=== PATIENT | female | born 1965 ===

== ENCOUNTER 2018-08-10 16:55 | Outpatient (CLI) | payer BC, MEDICARE | END 2018-08-10 16:56 | disposition home or self-care (01) | LOC: RAD 16:55 ==

== ENCOUNTER 2018-08-22 15:25 | Outpatient (CLI) | payer MEDICARE, BC | END 2018-08-22 15:26 | disposition home or self-care (01) | LOC: RAD 15:25 | DX: J18.8 Other pneumonia, unspecified organism (principal) ==

== ENCOUNTER 2018-08-29 00:51 | Inpatient (IN) | payer BC, MEDICARE ==
[2018-08-29 01:05] VITALS: BMI 39.4
--- NOTE | 2018-08-29 01:11 | ED PDOC ---
Arrival/HPI - General Chief Complaint: Abdominal Pain Time Seen by Provider: 08/29/18 00:58 Historian: Patient - History of Present Illness Narrative History of Present Illness (Text): 08/29/18 01:11 Nohemi Washburn is a 53 year old female, whose past medical history includes diabetes, diabetic neuropathy, ESRD on peritoneal dialysis, and hypertension, who presents to the ED complaining of back pain. Patient states she has been experiencing right mid-back/flank pain for the past few days, worse tonight and when she takes deep inspirations. Patient also reports some shortness of breath. Patient states she has been taking Motrin for pain, but denies any relief today. Patient notes she was recently sick with pneumonia, for which she had Chest X- ray, CT Chest, and was placed on antibiotics. Chest X-ray on 08/10/2018 showed extensive right lung infiltrates. Follow-up CT Chest on 08/22/2018 showed substantial decreased in right pleural effusion. Patient states she performs peritoneal dialysis every day while sleeping, but did not tonight. Patient denies any fever, chills, chest pain, shortness of breath, nausea, vomiting, diarrhea, urinary symptoms, neck pain, headache, dizziness, or any other complaints. Symptom Onset: Gradual Symptom Course: Unchanged Activities at Onset: Light Context: Home Past Medical History - Provider Review Nursing Documentation Reviewed: Yes - Cardiac Hx Hypertension: Yes Hx Peripheral Edema: Yes (not at present) - Pulmonary Hx Respiratory Disorders: No - Neurological Hx Multiple Sclerosis: Yes - HEENT Hx HEENT Disorder: No - Renal Hx Renal Disorder: Yes Hx Dialysis: Yes (Peritoneal Dialysis) Date of Last Dialysis Treatment: 11/06/17 Hx Renal Failure: Yes - Endocrine/Metabolic Hx Endocrine Disorders: Yes Hx Diabetes Mellitus Type 2: Yes - Hematological/Oncological Hx Blood Disorders: Yes - Integumentary Hx Dermatological Disorder: No - Musculoskeletal/Rheumatological Hx Arthritis: Yes (l ankle hx orif; toe prob) Hx Falls: No Hx Fractures: Yes (left ankle) - Gastrointestinal Hx Gastrointestinal Disorders: (constipation) - Genitourinary/Gynecological Hx Genitourinary Disorders: No - Psychiatric Hx Psychophysiologic Disorder: No Hx Substance Use: No - Surgical History Hx Section: Yes (x2) Hx Open Reduction Internal Fixation: Yes (left ankle) Other/Comment: av shunt insertion 08/15/17 - Anesthesia Hx Anesthesia: Yes Hx Anesthesia Reactions: No Hx Malignant Hyperthermia: No Family/Social History - Physician Review Nursing Documentation Reviewed: Yes Family/Social History: Unknown Family HX Smoking Status: Former Smoker Hx Alcohol Use: No Hx Substance Use: No Allergies/Home Meds Allergies/Adverse Reactions: Allergies No Known Allergies Allergy (Verified 10/30/17 09:25) Home Medications: Home Meds Medication Instructions Recorded Confirmed Aspirin [Aspirin Chewable] 81 mg PO DAILY 08/29/18 08/29/18 Atorvastatin [Lipitor] 40 mg PO QPM 08/29/18 08/29/18 B Complex W-C No.20/Folic Acid 1 mg PO DAILY 08/29/18 08/29/18 [Virt-Caps Softgel] Carvedilol [Coreg] 25 mg PO BID 08/29/18 08/29/18 Cu/Se/Vit A/Vit C/Vit E/Zinc 1 tab PO DAILY 08/29/18 08/29/18 [Ocuvite] Folic Acid/Vit B Complex and C 400 mcg PO DAILY 08/29/18 08/29/18 [Super B-Complex Folic-Vit C Tb] Furosemide [Lasix] 40 mg PO DAILY 08/29/18 08/29/18 Gabapentin [Neurontin] 200 mg PO HS 08/29/18 08/29/18 GlipiZIDE [Glipizide] 10 mg PO BID 08/29/18 08/29/18 Insulin Lispro Mix 75/25 [humalog 60 units SC BID 08/29/18 08/29/18 Mix 75/25 75 U/Ml-25 U/Ml 10 Ml] Melatonin 1 mg PO HS PRN 08/29/18 08/29/18 Metolazone 2.5 mg PO DAILY PRN 08/29/18 08/29/18 [place]-3 Fatty Acids [[place]-3] 1,000 mg PO BID 08/29/18 08/29/18 Sevelamer [Renagel] 800 mg PO TID 08/29/18 08/29/18 amLODIPine [Norvasc] 5 mg PO DAILY 08/29/18 08/29/18 Review of Systems - Physician Review All systems were reviewed & negative as marked: Yes - Review of Systems Constitutional: Normal. absent: Fevers Eyes: Normal ENT: Normal Respiratory: SOB, Cough Gastrointestinal: Normal. absent: Abdominal Pain, Diarrhea, Vomiting Musculoskeletal: Back Pain Physical Exam Vital Signs Reviewed: Yes Vital Signs Temp Pulse Resp BP Pulse Ox 08/29/18 01:05 98.1 F 91 H 16 107/88 97 Temperature: Afebrile Blood Pressure: Normal Pulse: Regular Respiratory Rate: Normal Appearance: Positive for: Well-Appearing, Non-Toxic, Comfortable Pain Distress: None Mental Status: Positive for: Alert and Oriented X 3 - Systems Exam Head: Present: Atraumatic, Normocephalic Pupils: Present: PERRL Extroacular Muscles: Present: EOMI Conjunctiva: Present: Normal Mouth: Present: Moist Mucous Membranes Neck: Present: Normal Range of Motion Respiratory/Chest: Present: Clear to Auscultation, Good Air Exchange. No: Respiratory Distress, Accessory Muscle Use Cardiovascular: Present: Regular Rate and Rhythm, Normal S1, S2. No: Murmurs Abdomen: No: Tenderness, Distention, Peritoneal Signs Back: Present: Normal Inspection Upper Extremity: Present: Normal Inspection. No: Cyanosis, Edema Lower Extremity: Present: Normal Inspection. No: Edema Neurological: Present: GCS=15, CN II-XII Intact, Speech Normal Skin: Present: Warm, Dry, Normal Color. No: Rashes Psychiatric: Present: Alert, Oriented x 3, Normal Insight, Normal Concentration Medical Decision Making ED Course and Treatment: 08/29/18 01:11 Impression: 53 year old female complaining of right mid-back/flank pain. Plan: -- EKG -- Chest X-ray -- Lung Perfusion and Vent Scan -- Labs, troponin, lipase -- Toradol -- Reassess and disposition Prior Visits: Notes and results from previous visits were reviewed. Progress Notes: Reviewed EKG, NSR at [address] bpm[address] Non-specific ST/T wave changes. 08/29/18 03:03 Chest X-ray reviewed, shows bilateral free air, no other acute processes. 08/29/18 04:41 Lung Perfusion and Vent: Analysis of the ventilation images reveal homogeneous distribution of tracer throughout the lungs. The perfusion images reveal homogeneous tracer localization throughout the lungs with no evidence of segmental or subsegmental perfusion defect. Impression: No significant mismatches to suggest a pulmonary embolus. Electronically signed on Aug 29, 2018 4:36:27 AM EDT by: Filomena Burrows M.D., Certified by ABR, MSK, Neuroradiology 08/29/18 05:[address] Maximiliano Chou, who is aware and agrees with plan. Accepts pt in to his service. Pt will go to [facility] observation for leukocytosis and flank pain. - Lab Interpretations I have reviewed the lab results: Yes - RAD Interpretation Section Plotter Operator: ED Physician, Radiologist - EKG Interpretation Interpreted by ED Physician: Yes Type: 12 lead EKG - Scribe Statement The provider has reviewed the documentation as recorded by the Srinivasa Jauregui Provider Scribe Attestation: All medical record entries made by the Scribe were at my direction and personally dictated by me. I have reviewed the chart and agree that the record accurately reflects my personal performance of the history, physical exam, medical decision making, and the department course for this patient. I have also personally directed, reviewed, and agree with the discharge instructions and disposition. Disposition/Present on Arrival - Present on Arrival Any Indicators Present on Arrival: No History of DVT/PE: No History of Uncontrolled Diabetes: No Urinary Catheter: No History of Decub. Ulcer: No History Surgical Site Infection Following: None - Disposition Have Diagnosis and Disposition been Completed?: Yes Diagnosis: Back pain, Peritoneal dialysis-associated peritonitis Disposition: HOSPITALIZED Disposition Time: 05:10 Condition: FAIR
[2018-08-29 02:10] LABS: BASO # 0.08 K/mm3 (0.0-2.0); BASO % 0.5 % (0.0-3.0); EOS # 1.1 (0.0-0.7); EOS % 7.2 % (1.5-5.0); HEMOGLOBIN 10.7 g/dL (12.0-16.0); LYMPH # 2.8 (1.2-3.4); LYMPH % 17.6 % (22.0-35.0); MEAN CELL VOLUME 97.1 fl (80.0-105.0); MEAN CORPUSCULAR HEMOGLOBIN 31.5 pg (25.0-35.0); MEAN CORPUSCULAR HGB CONC 32.4 g/dl (31.0-37.0); MEAN PLATELET VOLUME 8.9 fl (7.0-11.0); MONO # 0.7 (0.1-0.6); MONO % 4.1 % (1.0-6.0); RBC 3.4 10^6/uL (3.5-6.1); RED CELL DISTRIBUTION WIDTH 15.7 % (11.5-14.5); WHITE BLOOD COUNT 15.9 10^3/uL (4.5-11.0)
[2018-08-29 02:19] LABS: INR 0.93; PARTIAL THROMBOPLASTIN TIME 30.9 Seconds (26.9-38.3); PROTHROMBIN TIME 10.3 SECONDS (9.4-12.5)
[2018-08-29 02:23] LABS: ALB/GLOB RATIO 1.2 (1.1-1.8); ALBUMIN 4.1 g/dL (3.0-4.8); ALT/SGPT 28 U/L (7-56); AST/SGOT 53 U/L (14-36); BLOOD UREA NITROGEN 60 mg/dL (7-21); CALCIUM 8.9 mg/dL (8.4-10.5); GFR NON-AFRICAN AMERICAN 7; LIPASE 289 U/L (23-300)
[2018-08-29 02:35] LABS: TROPONIN I < 0.01 ng/mL
[2018-08-29] MEDS ORDERED: Morphine 2 mg/ml ISec IVP STA (03:36)
[2018-08-29] MEDS ORDERED: Vancomycin 1gm in NS 250ml 1 GM/250 ML BAG IVPB STA (04:02)
[2018-08-29] MEDS ORDERED: metroNIDAZOLE IV 500 mg/100 ml 500 MG/100 ML BAG IVPB STA (05:10)
--- NOTE | 2018-08-29 08:26 | RAD ---
HISTORY: cp COMPARISON: Chest x-ray performed 08/10/18, CT chest without contrast performed 08/22/18 TECHNIQUE: Chest, one view. FINDINGS: Examination limited by habitus, hypoinflation. Patient's chin obscures evaluation of the lung apices. LUNGS: Bibasilar atelectasis. Please note that chest x-ray has limited sensitivity for the detection of pulmonary masses. PLEURA: No significant pleural effusion identified. No definite pneumothorax . CARDIOVASCULAR: Heart size appears within normal limits. Atherosclerotic calcifications present. OSSEOUS STRUCTURES: No acute osseous abnormality identified. VISUALIZED UPPER ABDOMEN: Lucencies beneath bilateral hemidiaphragm consistent with free air; correlate clinically. OTHER FINDINGS: None. IMPRESSION: Bibasilar atelectasis. Curvilinear lucencies beneath bilateral hemidiaphragm consistent with free air; correlate clinically. This was also reported on chest CT without contrast performed 08/22/18. Findings discussed with Dr. Ramos on 08/29/18 at 8:17 a.m. Additional history provided indicates that the patient is on peritoneal dialysis.
[2018-08-29] MEDS ORDERED: Dextrose 50% SYRINGE Inj (50 ml) IV PRN (08:43)
[2018-08-29] MEDS ORDERED: Albuterol-Ipratrop 3 mg / 0.5 (3 ml) UD IH PRN (08:46)
[2018-08-29] MEDS: Morphine 2 mg/ml ISec IVP PRN ×3 (10:16→21:34)
[2018-08-29] MEDS: Insulin Detemir 100 units/ml Vial (Levemir) SC SCH ×2 (10:18→18:50)
--- NOTE | 2018-08-29 10:52 | CT ---
Date of service: 08/29/2018 CT abdomen and pelvis without IV contrast Indication: right flank pain Technique: Contiguous axial images of the abdomen and pelvis. Oral contrast was administered. No IV contrast given. Coronal and Sagittal reformats generated and reviewed. This CT exam was performed using 1 or more of the following dose reduction techniques: Automated exposure control, adjustment of the MAA and/or kV according to patient size, and/or use of iterative reconstruction technique. Radiation dose: Total exam DLP = 1485.79 mGy-cm. Comparison: Chest x-ray performed 08/29/18, CT chest without contrast performed 08/22/18 Findings: 17 mm cavitation versus bulla at the right lung base. There is no visible pleural effusion or pneumothorax. Heart size appears within normal limits. Abdominal free air. Right lower quadrant catheter. Hepatomegaly. The unenhanced liver, spleen, kidneys, pancreas, adrenal glands, and gallbladder appear otherwise unremarkable. Innumerable subcentimeter mesenteric lymph nodes The stomach is nondistended. The bowel loops appear within normal limits of caliber without evidence of intestinal obstruction. The appendix appears within normal limits of caliber. No secondary signs of acute appendicitis. Uterus is present. The urinary bladder appears unremarkable. Degenerative changes. Impression: 17 mm cavitation versus bulla at the right lung base. Abdominal free air. Right lower quadrant catheter. Hepatomegaly. Mesenteric inflammatory stranding ("tianna" mesentery) and numerous sub cm mesenteric lymph nodes. Appearance is nonspecific however differential diagnosis include but not limited to mesenteric panniculitis, neoplasm such as mesenteric lymphoma, infectious and or inflammatory etiologies.
[2018-08-29] MEDS: Albuterol-Ipratrop 3 mg / 0.5 (3 ml) UD IH SCH ×4 (11:17→23:45)
--- NOTE | 2018-08-29 11:26 | HP ---
HISTORY OF PRESENT ILLNESS: The patient is a 53-year-old woman with multiple medical comorbidities including ESRD on peritoneal dialysis, who was recently treated for a right lower lobe pneumonia with a 10 day course of Levaquin, who presented for evaluation of a 2 day history of right-sided mid-back/flank pain. Approximately 2 weeks ago she was seen in her PMD's office for complaint of low-grade fevers, chills, dyspnea and cough productive of green sputum. She was diagnosed with a pneumonia and sent for an x-ray which confirmed the RLL pneumonia. The patient demonstrated moderate improvement in her respiratory symptoms but 1 week later returned for followup and endorsed persistent pleuritic chest pain, albeit improved. She was sent for a CT of the chest without contrast which demonstrated a substantially decreased right pleural effusion with reexpansion of the right lower lobe and free air under the diaphragm likely related to her peritoneal dialysis. The patient continued to demonstrate gradual improvement in her respiratory status until approximately 4 days prior to presentation to the ED when she developed the aforementioned right-sided mid-back/flank pain. She also reported chills associated with her symptoms but denied fevers, rigors, cough, hemoptysis or dyspnea. She also denied dysuria, hematuria, nausea, vomiting or diarrhea. In the ED she was afebrile and hemodynamically stable, albeit in mild distress secondary to right flank pain. A chest x-ray demonstrated no acute pathology and routine laboratory studies demonstrated leukocytosis with a WBC of 16,000 with 71% neutrophils. She was subsequently admitted for continued workup and management. PAST MEDICAL HISTORY: As per HPI, also hypertension, hyperlipidemia, insulin-dependent diabetes mellitus with diabetic neuropathy and multiple sclerosis. PAST SURGICAL HISTORY: , orthopedic repair of left ankle fracture and placement of left upper extremity AV fistula. ALLERGIES: NKDA. MEDICATIONS: Aspirin 81 mg p.o. daily, Lipitor 40 mg p.o. daily, Carvedilol 25 mg p.o. b.i.d., Amlodipine 5 mg p.o. daily, Lasix 40 mg p.o. daily, Gabapentin 200 mg p.o. at bedtime, Sevelamer 800 mg p.o. t.i.d., [place]-3 fatty acids 1000 mg p.o. b.i.d., Metolazone 2.5 mg p.o. daily, Glipizide 10 mg p.o. b.i.d. and Humalog 75/25 60 units SC t.i.d. with meals. FAMILY HISTORY: Significant for hypertension, diabetes, Alzheimer's disease and an unknown malignancy in her mother. SOCIAL HISTORY: The patient denies any toxic habits. REVIEW OF SYSTEMS: A 12-point review of systems is negative except as per HPI. PHYSICAL EXAMINATION: VITAL SIGNS: Temperature 98.2, pulse 95, blood pressure 130/55, respiratory rate 20, oxygen saturation 95% on room air. GENERAL: Morbidly obese woman lying in bed in no apparent distress. HEENT: PERRL, EOMI. No scleral icterus. No conjunctival pallor. NECK: No JVD. No bruits. LUNGS: Clear to auscultation. CARDIOVASCULAR: Regular rate and rhythm. Normal S1, S2. No murmurs. ABDOMEN: Normoactive bowel sounds, soft, nontender, nondistended. Tenderness to palpation to left flank. EXTREMITIES: Trace pedal edema bilaterally. NEUROLOGIC: Awake, alert and oriented x 3. No focal motor deficits. LABORATORY DATA: WBC 15.9 with 71% neutrophils, hemoglobin 10.7, hematocrit 33, platelets 427. Sodium 143, potassium 4.3, chloride 98, bicarb 33, BUN 60, creatinine 6, glucose 138. IMAGING STUDIES: 1. Chest x-ray demonstrated bibasilar atelectasis and curvilinear lucencies beneath the bilateral hemidiaphragms consistent with free air. ASSESSMENT: The patient is a 53-year-old woman with multiple medical comorbidities who was recently treated with a 10 day course of antibiotics for community-acquired pneumonia who presented with a 3 day history of right sided mid-back and flank pain and was admitted for workup and management of SIRS syndrome. PLAN: 1. SIRS syndrome, rule out sepsis. The patient received a dose of Vancomycin and Flagyl in the ED. Evaluation with Dr. Oates of Infectious Disease is pending. We will order a CT of the abdomen and pelvis to further evaluate possible etiology of the patient's presenting symptoms. Continue to monitor for fever and leukocytosis and await final culture reports. We will check a procalcitonin level. 2. ESRD on peritoneal dialysis. Will consult Dr. Guerra of Nephrology to facilitate continue dialysis while the patient remains hospitalized. Resume sevelamer 800 mg p.o. t.i.d. 3. Insulin-dependent diabetes mellitus with diabetic neuropathy. We will start Levemir 30 units SC b.i.d. and medium dose insulin sliding scale for coverage. Will continue monitor fingersticks q.a.c. and at bedtime and adjust medications as needed. Continue Gabapentin 200 mg p.o. at bedtime for neuropathy. 4. Hypertension. Blood pressure controlled. Continue Carvedilol 25 mg p.o. b.i.d. and Amlodipine 5 mg p.o. daily. 5. Hyperlipidemia. Continue Lipitor 40 mg p.o. daily. 6. Multiple sclerosis. Continue Gabapentin 20 mg p.o. at bedtime. 7. Anemia of chronic disease. Labs demonstrate Hb at baseline. We will continue monitor CBC and transfuse as needed. 8. Right lower lobe pneumonia, resolving. Chest x-ray reviewed and demonstrates near resolution of prior pneumonia. We will order incentive spirometry and bronchodilators. 9. Prophylaxis. GI prophylaxis not indicated as the patient is eating. DVT prophylaxis not indicated as the patient is ambulatory. CODE STATUS: Full code. Eh Chou MD MTDDayan
[2018-08-29] MEDS: Insulin Reg-MEDIUM-Coverage SC SCH ×3 (12:22→21:32)
--- NOTE | 2018-08-29 13:17 | CARD ---
APPROVED REPORT Date of service: 08/29/2018 EKG Measurement Heart [id number] <Conclusion> Normal sinus rhythm Possible Left atrial enlargement Poor R Progression V1-V3.
[2018-08-29] MEDS ORDERED: Pneumococcal 23-Valent Vaccine IM ONE (13:54)
--- NOTE | 2018-08-29 16:11 | CP.PCM.CON ---
History of Present Illness - History of Present Illness History of Present Illness: Nephrology Consultation Note: Assessment: Stable SIRS r/o PD peritonitis Diabetic chronic Kidney Disease (E11.22) Hypertensive Chronic Kidney Disease (I12.0) End stage renal disease (N18.6) dependence on PD Anemia (D64.9), Hyperphosphatemia (E83.39), Secondary Hyperparathyroidism (E21.1), morbid obesity Plan: check PD fluid cell count and culture tonight. Pt will resume PD as per home regimen. will bring supply from home. Continue with Nephrovite 1 tab/day. PRBC as needed for anemia. not on KRISTIE as last Hb >10 Continue with phos binders, last phos level: check Continue with calcitriol. BP control with meds as ordered. Patient not on RAAS jannette, will consider to add if BP high. will d/c norvasc and change lasix to IV considering edema Glycemic control, Dialysis consistent diet Further work up/management as per primary team Dose meds/antibiotics (if needed) for ESRD status. Avoid fleets enema/magnesium based laxatives. Thanks for allowing me to participate in care of your patient. Will follow patient with you. Please call if any Qs. had d/w team and family bedside Dr Antonio Guerra Office: [phone] Chief Complaint;flank pain HPI: Pt is a 53 F with hx of ESRD on APD with Dr Castillo, chronic anemia, hyperphosphatemia, secondary hyperparathyroidism, Diabetes Mellitus, hypertension morbid obesity presented with complaints of flank pain and admitted for further work up. Renal consult requested for ESRD management. pt says she was on HD for few months then switched to HD jan 2018. do PD at night with cycler. average UF as per pt varies but may be 1000 mLc/o leg swelling as well ROS: Cardiovascular: No chest pain. Pulmonary: c/o shortness of breath on exertion. has cough Gastrointestinal: c/o abdominal pain No nausea. No vomiting. Genitourinary: No pain while urinating. Denies blood in urine. All other negative except as mentioned in HPI Physical Examination: General Appearance: Comfortable, in no acute respiratory distress, co-operative .morbidly obese Vitals reviewed and noted as below Head; Atraumatic, normocephalic ENT: no ulcers no thrush. Tongue is midline. Oropharynx: no rash or ulcers. EYES: Pupils are equal, round and reactive to light accommodation. Eye muscles and extraocular movement intact. Sclera is anicteric. Neck; supple no lymphadenopathy, no thyromegaly or bruit Lungs: Normal respiratory rate/effort. Breath sounds bilateral equal and clear Heart: Normal rate. s1s2 normal. No rub or gallop. Extremities: 2+ edema. No varicose veins Neurological: Patient is alert, awake and oriented to person, place and time. No focal deficit. Strength bilateral appropriate and equal Skin: Warm and dry. Normal turgor. No rash. Palpitation: Normal elasticity for age Abdomen: Abdomen is soft. Bowel sounds +. There is mild abdominal tenderness, no guarding/rigidity or organomegaly. has PD catheter Psych: normal insight and normal affect/mood MSK: no joint tenderness or swelling. Digits and nails normal, no deformity : kidney or bladder not palpable Access: PD catheter Labs/imaging reviewed. Past medical history, past surgical history, family history, social history, allergy reviewed and noted as below Family Hx: no hx of CKD. Non contributory Past Patient History - Past Medical History & Family History Past Medical History?: Yes - Past Social History Smoking Status: Former Smoker - CARDIAC Hx Cardiac Disorders: Yes Hx Hypercholesterolemia: Yes Hx Hypertension: Yes Hx Peripheral Edema: Yes (ble +1 pitting) Other/Comment: developed a thrombus to jeannine av shunt unable to use it for dialysis, pt does peritoneal dialysis at home every day for 9 hours at night while she sleeps - PULMONARY Hx Respiratory Disorders: Yes Hx Pneumonia: Yes (recent rll) - NEUROLOGICAL Hx Neurological Disorder: Yes (multiple sclerosis dx 2003) Other/Comment: diabetic neuropathy both legs and feet, "I can't feel anything, muscle weakness to both legs from ms." - HEENT Hx HEENT Problems: No - RENAL Hx Chronic Kidney Disease: Yes Hx Dialysis: Yes (Peritoneal Dialysis) Hx Renal Failure: Yes Other/Comment: pt had a left uppr arm av shunt implanted 11/2017, developed a thrombus after 1st dialysis had graft but unable to use it. Pt started peritoneal dialysis 01/2018 at home daily for 9 hours while she sleeps pt and do it themselves. Supplies come from [facility] and is delivered every 2 weeks. peritoneal dialysis catheter to left abd. - ENDOCRINE/METABOLIC Hx Endocrine Disorders: Yes Hx Diabetes Mellitus Type 2: Yes - HEMATOLOGICAL/ONCOLOGICAL Hx Blood Disorders: Yes Hx Anemia: Yes - INTEGUMENTARY Hx Dermatological Problems: Yes Other/Comment: left great toe callous skin hard and dry, dry skin to both feet/toes, dry toenails, dark healed scarring from left av shunt - MUSCULOSKELETAL/RHEUMATOLOGICAL Hx Falls: Yes (fell x2 2018) - GASTROINTESTINAL Hx Gastrointestinal Disorders: Yes (constipation, takes colace when needed) Other/Comment: obese - GENITOURINARY/GYNECOLOGICAL Hx Genitourinary Disorders: Yes (pt does void) Other/Comment: irregular menses - PSYCHIATRIC Hx Substance Use: No - SURGICAL HISTORY Hx Surgeries: Yes (c section x 2) Hx Orthopedic Surgery: Yes (orif left ankle) Other/Comment: av shunt insertion 08/15/17 jeannine, had graft due to hd cath thrombus, av shunt not replaced unable to use it, pt has been on peritoneal dialysis since has pd cath to left abd 01/2018 - ANESTHESIA Hx Anesthesia: Yes Hx Anesthesia Reactions: No Hx Malignant Hyperthermia: No Meds Allergies/Adverse Reactions: Allergies Allergy/AdvReac Type Severity Reaction Status Date / Time No Known Allergies Allergy Verified 10/30/17 09:25 - Medications Medications: Current Medications Acetaminophen (Tylenol 325mg Tab) 650 mg PO Q4H PRN PRN Reason: Fever >100.5 F Albuterol/Ipratropium (Duoneb 3 Mg/0.5 Mg (3 Ml) Ud) 3 ml IH Q2H PRN PRN Reason: Shortness of Breath Albuterol/Ipratropium (Duoneb 3 Mg/0.5 Mg (3 Ml) Ud) 3 ml IH [id number] [facility] Last Admin: 08/29/18 15:08 Dose: 3 ml Amlodipine Besylate (Norvasc) 5 mg PO DAILY [facility] Last Admin: 08/29/18 10:19 Dose: 5 mg Aspirin (Aspirin Chewable) 81 mg PO DAILY [facility] Last Admin: 08/29/18 10:19 Dose: 81 mg Atorvastatin Calcium (Lipitor) 40 mg PO DIN [facility] Carvedilol (Coreg) 25 mg PO BID [facility] Last Admin: 08/29/18 10:19 Dose: 25 mg Dextrose (Dextrose 50% Inj) 0 ml IV STAT PRN; Protocol PRN Reason: Hypoglycemia Protocol Furosemide (Lasix) 40 mg PO DAILY [facility] Last Admin: 08/29/18 12:21 Dose: 40 mg Gabapentin (Neurontin) 200 mg PO HS [facility]; Protocol Dextrose (Dextrose 5% In Water 1000 Ml) 1,000 mls @ 0 mls/hr IV .Q0M PRN; Protocol PRN Reason: Hypoglycemia Protocol Meropenem 250 mg/ Sodium (Chloride) 100 mls @ 100 mls/hr IVPB Q12H [facility]; Protocol Stop: 09/05/18 14:01 Last Admin: 08/29/18 15:12 Dose: 100 mls/hr Insulin Detemir (Levemir) 30 unit SC BID [facility] Last Admin: 08/29/18 10:18 Dose: 30 units Insulin Human Regular (Humulin R Med) 0 units SC ACHS [facility]; Protocol Last Admin: 08/29/18 12:22 Dose: 5 units Morphine Sulfate (Morphine) 2 mg IVP Q4H PRN PRN Reason: Pain, moderate (4-7) Last Admin: 08/29/18 15:10 Dose: 2 mg Sevelamer HCl (Renagel) 800 mg PO TID [facility] Last Admin: 08/29/18 15:10 Dose: 800 mg Results - Vital Signs Recent Vital Signs: Last Vital Signs Temp 97.7 F 08/29/18 13:56 Pulse 82 08/29/18 13:56 Resp 18 08/29/18 13:56 BP 114/68 08/29/18 13:56 Pulse Ox 94 L 08/29/18 13:56 - Labs Result Diagrams: 08/29/18 01:45 08/29/18 01:45 Labs: Laboratory Results - last 24 hr 08/29/18 08/29/18 08/29/18 01:45 01:45 01:45 WBC 15.9 H RBC 3.40 L Hgb 10.7 L Hct 33.0 L MCV 97.1 MCH 31.5 MCHC 32.4 RDW 15.7 H Plt Count 427 MPV 8.9 Neut % (Auto) 70.6 H Lymph % (Auto) 17.[address] [facility] % (Auto) 4.1 Eos % (Auto) 7.2 H Baso % (Auto) 0.5 Lymph # (Auto) 2.8 [facility] # (Auto) 0.7 H Eos # (Auto) 1.1 H Baso # (Auto) 0.08 Absolute Neuts (auto) 11.24 H PT 10.3 INR 0.93 APTT 30.9 Sodium 143 Potassium 4.3 Chloride 98 Carbon Dioxide 33 Anion Gap 17 BUN 60 H Creatinine 6.0 H Est GFR ( Amer) 9 Est GFR (Non-Af Amer) 7 POC Glucose (mg/dL) Random Glucose 138 H Calcium 8.9 Total Bilirubin 0.3 AST 53 H D ALT 28 Alkaline Phosphatase 121 Troponin I < 0.01 Total Protein 7.6 Albumin 4.1 Globulin 3.5 Albumin/Globulin Ratio 1.2 Lipase 289 08/29/18 11:08 WBC RBC Hgb Hct MCV MCH MCHC RDW Plt Count MPV Neut % (Auto) Lymph % (Auto) [facility] % (Auto) Eos % (Auto) Baso % (Auto) Lymph # (Auto) [facility] # (Auto) Eos # (Auto) Baso # (Auto) Absolute Neuts (auto) PT INR APTT Sodium Potassium Chloride Carbon Dioxide Anion Gap BUN Creatinine Est GFR ( Amer) Est GFR (Non-Af Amer) POC Glucose (mg/dL) 253 H Random Glucose Calcium Total Bilirubin AST ALT Alkaline Phosphatase Troponin I Total Protein Albumin Globulin Albumin/Globulin Ratio Lipase
[2018-08-29] MEDS: POLYETHYLENE GLYCOL 3350 17 GM/Dose PACKET PO SCH (18:48)
[2018-08-30] MEDS: Morphine 2 mg/ml ISec IVP PRN (01:50)
[2018-08-30] MEDS ORDERED: Insulin Reg-MEDIUM-Coverage SC STA (02:31)
[2018-08-30] MEDS: Albuterol-Ipratrop 3 mg / 0.5 (3 ml) UD IH SCH ×7 (02:39→23:30)
[2018-08-30] MEDS: Insulin Reg-MEDIUM-Coverage SC SCH ×4 (07:00→21:24)
[2018-08-30 07:16] LABS: BASO # 0.08 K/mm3 (0.0-2.0); BASO % 0.7 % (0.0-3.0); EOS % 8.3 % (1.5-5.0); HEMOGLOBIN 10.3 g/dL (12.0-16.0); LYMPH # 2.1 (1.2-3.4); LYMPH % 17.8 % (22.0-35.0); MEAN CELL VOLUME 97.9 fl (80.0-105.0); MEAN CORPUSCULAR HEMOGLOBIN 30.8 pg (25.0-35.0); MEAN CORPUSCULAR HGB CONC 31.5 g/dl (31.0-37.0); MEAN PLATELET VOLUME 8.8 fl (7.0-11.0); MONO # 0.5 (0.1-0.6); MONO % 4.1 % (1.0-6.0); RBC 3.34 10^6/uL (3.5-6.1); RED CELL DISTRIBUTION WIDTH 15.6 % (11.5-14.5); WHITE BLOOD COUNT 11.6 10^3/uL (4.5-11.0)
[2018-08-30 08:00] LABS: ALB/GLOB RATIO 1.2 (1.1-1.8); ALBUMIN 4.4 g/dL (3.0-4.8); CALCIUM 8.7 mg/dL (8.4-10.5)
--- NOTE | 2018-08-30 08:57 | CON ---
DATE OF CONSULTATION: 08/30/2018 PULMONARY CONSULTATION REASON FOR CONSULTATION: Bullae, right base. REFERRING PHYSICIAN: Eh Chou MD HISTORY OF PRESENT ILLNESS: The patient is a 53-year-old female, with past medical history significant for recent right upper lobe/right lower lobe pneumonia, diabetes mellitus, end-stage renal disease, on peritoneal dialysis, hypertension, neuropathy, who presents to [facility] with main complaint of increasing right back pain for the past 2 days. The patient denies shortness of breath at rest. She does state to some dyspnea on exertion - much improved from 2 weeks ago. She also states to some minimal cough with occasional sputum production - also much improved from 2 weeks ago. There is no history of chest pain, coughing up of blood, or chest pain - brought on with deep respirations. There is no history of temperatures or chills or infectious exposure. The patient does state to taking her temperature every day. No history of night sweats, weight loss, or appetite change prior to the above events. No history of calf pains. No history of syncope or diaphoresis. No history of recent travel or trauma. REVIEW OF SYSTEMS: No history of nausea, vomiting or diarrhea. No acute urinary symptoms. No new neurologic complaints. Rest of the review of systems negative. ALLERGIES: NO KNOWN ALLERGIES. SOCIAL HISTORY: Positive for former tobacco usage. No alcohol. FAMILY HISTORY: No inheritable diseases. MEDICATIONS: Home medications include Norvasc, Renagel, insulin, metolazone, melatonin, Neurontin, Lasix, vitamins, Lipitor, aspirin. PHYSICAL EXAMINATION: GENERAL: The patient appears comfortable this morning. She is not short of breath at rest. VITAL SIGNS: Temperature is 98.4, pulse 90, respirations 18/20, blood pressure 144/81. Oxygen saturation on room air 92-97%. HEENT: Normocephalic, atraumatic. NECK: No JVD. CARDIOVASCULAR: Positive S1, S2. No S3, gallop. LUNGS: Decreased breath sounds at the bases. Very minimal rhonchi. No wheezing. EXTREMITIES: Mild edema, no cyanosis, no clubbing. Calves are nontender to palpation. GASTROINTESTINAL: Abdomen is soft, nontender and nondistended. Bowel sounds are positive. SKIN: No acute rash. NEUROLOGIC: Exam limited at the present time. PERTINENT LABORATORY DATA: Chest x-ray was done yesterday and reviewed. I also compared to the chest x-ray done yesterday to the chest x-ray done on 08/10/2018. The chest x-ray done yesterday is significantly improved from the chest x-ray of 08/10/2018 - with complete clearing of the right upper lobe and right lower lobe infiltrates. Abdominal and pelvic CAT scan was also done. There is a small bullae versus cavitation noted at the right lung base. There are NO pulmonary infiltrates. There is no significant lymphadenopathy. CBC: White count 15.9K, hemoglobin 10.7, hematocrit 33.0, platelets of 427,000. Complete metabolic profile: BUN 60, creatinine 6, glucose 138, AST 53. Rest of the metabolic profile is within normal limits. Procalcitonin is negative - 0.15. IMPRESSION: 1. Cavitation verses bullae - right lung base. 2. Status post recent right upper lobe, right lower lobe pneumonia. 3. End-stage renal disease. 4. Leukocytosis. 5. Anemia. PLAN: The patient presents to [facility] with a 2-day history of increasing right back pain. In addition to the above, the patient does have a recent history of extensive right-sided pneumonia. In the emergency room, the patient was noted to have a leukocytosis. She was thus admitted for additional evaluation. I did question the patient at length. She is not short of breath at rest. She does complain of some mild dyspnea on exertion, and occasional cough (with occasional sputum production) - much improved from 2 weeks ago. In addition, there is NO recent history of fevers. The patient does take her temperature every day. I did review the chest x-ray as above. The chest x-ray is very significantly improved - from the previous chest x-ray - with complete resolution of the right-sided infiltrates. I have also reviewed the CAT scan of the abdomen and pelvis. Findings are noted above. Interesting to note, there are no pulmonary infiltrates noted. There is also no significant lymphadenopathy. The patient has been placed on antibiotic therapy - as per Infectious Disease. Input by Dr. Oates is noted. I will discuss the case with Dr. Chou this morning. Given the leukocytosis, it may be prudent to involve Interventional Radiology (Dr. Anson Juarez), and get his opinion. On physical exam, there is no significant bronchospasm. In addition, there is no significant alveolar arterial gradient. I will continue the current nebulizer treatments for now. Again, the patient's clinical status is significantly improved - compared to 2 weeks ago. Again, I will discuss the above with Dr. Chou this morning. Thank you very much for this pulmonary consultation. Isac Erazo MD MTDD
[2018-08-30] MEDS: Insulin Detemir 100 units/ml Vial (Levemir) SC SCH ×2 (10:11→19:39)
--- NOTE | 2018-08-30 10:39 | PN ---
SUBJECTIVE: The patient was seen and examined at bedside on the general medical saleem. No acute events overnight. She remains afebrile and hemodynamically stable. This morning she reports some improvement in her presenting symptoms and otherwise denies fevers, chills, rigors, cough, hemoptysis, dyspnea or GI symptoms. OBJECTIVE: VITAL SIGNS: Temperature 97.9, pulse 80, blood pressure 135/73, respiratory rate 20 and oxygen saturation 92% on room air. GENERAL: Morbidly obese woman, sitting up in her chair, in no apparent distress. HEENT: PERRL, EOMI. No scleral icterus. Mild conjunctival pallor is noted. NECK: No JVD. No bruits. LUNGS: Clear to auscultation. CARDIOVASCULAR: Regular rate and rhythm. Normal S1 and S2. No murmurs. ABDOMEN: Normoactive bowel sounds, soft, nontender and nondistended. EXTREMITIES: Trace pedal edema bilaterally. NEUROLOGIC: Awake, alert and oriented x 3. No focal motor deficits. LABORATORY DATA: WBC 11.6 with 69% neutrophils, hemoglobin 10, hematocrit 33 and platelets 401. Sodium 138, potassium 4.6, chloride 97, bicarb 28, BUN 58, creatinine 6 and glucose 406. Blood cultures with no growth to date. IMAGING STUDIES: 1. CT of the abdomen and pelvis without contrast demonstrated a 17 mm cavitation vs bulla to the right lung base, hepatomegaly and mesenteric inflammatory stranding with numerous mesenteric lymph nodes. ASSESSMENT: The patient is a 53-year-old woman with multiple medical comorbidities who was recently treated with a 10 day course of antibiotics for community-acquired pneumonia who presented with a 3 day history of right-sided mid-back and flank pain and was admitted for management of SIRS syndrome. PLAN: 1. SIRS syndrome, rule out sepsis. Input from Dr. Oates noted and the patient remains on Meropenem 250 mg IV q. 12 hours. Blood cultures remain negative and she continues to demonstrate clinical improvement. Peritoneal fluid analysis pending to rule out peritonitis. 2. Community-acquired pneumonia to the right lower lobe, resolved. Imaging studies reviewed and the case has been discussed with Dr. Erazo. We will speak with Dr. Anson Juarez regarding feasibility/clinical utility of pursuing biopsy/aspiration of the bulla noted on CT. Continue incentive spirometry and bronchodilators. 3. ESRD on peritoneal dialysis. Input from Dr. Guerra noted. Continue with care as per Dr. Guerra. 4. Insulin-dependent diabetes mellitus with diabetic neuropathy. Fingersticks remain elevated. We will increase Levemir to 40 units subcutaneously b.i.d. and start Humalog 75/25 at 20 units subcutaneously t.i.d. with meals. Continue to monitor fingersticks q.a.c. and at bedtime and adjust medications as needed. Continue Gabapentin 200 mg p.o. at bedtime for neuropathy. 5. Hypertension. Continue Carvedilol 25 mg p.o. b.i.d. 6. Hyperlipidemia. Continue Lipitor 40 mg p.o. daily. 7. Multiple sclerosis. Continue Gabapentin 200 mg p.o. at bedtime. 8. Anemia of chronic disease. Hb stable. Continue to monitor CBC and transfuse as needed. 9. Prophylaxis. GI prophylaxis not indicated as the patient is eating. DVT prophylaxis not indicated as the patient is ambulatory. CODE STATUS: Full code. Eh Chou MD MTDD
--- NOTE | 2018-08-30 11:21 | CP.PCM.PN ---
Subjective - Date & Time of Evaluation Date of Evaluation: 08/30/18 Time of Evaluation: 06:00 Objective - Vital Signs/Intake and Output Vital Signs (last 24 hours): Temp Pulse Resp BP Pulse Ox 97.9 F 88 20 142/69 92 L 08/30/18 06:00 08/30/18 10:08 08/30/18 06:00 08/30/18 10:09 08/30/18 06:00 Intake and Output: 08/30/18 08/30/18 06:59 18:59 Intake Total 780 Balance 780 - Medications Medications: Current Medications Acetaminophen (Tylenol 325mg Tab) 650 mg PO Q4H PRN PRN Reason: Fever >100.5 F Albuterol/Ipratropium (Duoneb 3 Mg/0.5 Mg (3 Ml) Ud) 3 ml IH Q2H PRN PRN Reason: Shortness of Breath Albuterol/Ipratropium (Duoneb 3 Mg/0.5 Mg (3 Ml) Ud) 3 ml IH [id number] [facility] Last Admin: 08/30/18 07:59 Dose: 3 ml Aspirin (Aspirin Chewable) 81 mg PO DAILY [facility] Last Admin: 08/30/18 10:05 Dose: 81 mg Atorvastatin Calcium (Lipitor) 40 mg PO DIN [facility] Last Admin: 08/29/18 18:48 Dose: 40 mg Carvedilol (Coreg) 25 mg PO BID [facility] Last Admin: 08/30/18 10:08 Dose: 25 mg Dextrose (Dextrose 50% Inj) 0 ml IV STAT PRN; Protocol PRN Reason: Hypoglycemia Protocol Furosemide (Lasix) 40 mg IVP DAILY [facility] Last Admin: 08/30/18 10:09 Dose: 40 mg Gabapentin (Neurontin) 200 mg PO HS [facility]; Protocol Last Admin: 08/29/18 22:20 Dose: 200 mg Dextrose (Dextrose 5% In Water 1000 Ml) 1,000 mls @ 0 mls/hr IV .Q0M PRN; Protocol PRN Reason: Hypoglycemia Protocol Meropenem 250 mg/ Sodium (Chloride) 100 mls @ 100 mls/hr IVPB Q12H [facility]; Protocol Stop: 09/05/18 14:01 Last Admin: 08/30/18 01:51 Dose: 100 mls/hr Insulin Detemir (Levemir) 40 unit SC BID [facility] Last Admin: 08/30/18 10:11 Dose: 40 u Insulin Human Regular (Humulin R Med) 0 units SC [facility]; Protocol Last Admin: 08/30/18 07:00 Dose: 10 units Insulin Lispro Protam/Lispro Human (Humalog Mix 75/25) 20 units SC AC [facility] Lactulose (Enulose) 20 gm PO HS PRN PRN Reason: Constipation Polyethylene Glycol (Miralax) 17 gm PO DAILY [facility] Stop: 09/02/18 10:01 Last Admin: 08/29/18 18:48 Dose: 17 gm Sevelamer HCl (Renagel) 800 mg PO TID [facility] Last Admin: 08/30/18 10:05 Dose: 800 mg - Labs Labs: 08/30/18 06:40 08/30/18 06:40 PT 10.3 SECONDS (9.4-12.5) 08/29/18 01:45 INR 0.93 08/29/18 01:45 APTT 30.9 Seconds (26.9-38.3) 08/29/18 01:45
[2018-08-30] MEDS: Insulin Lispro (humaLOG) MIX 75/25(10 ml) SC SCH ×2 (12:14→17:26)
--- NOTE | 2018-08-30 14:07 | CP.PCM.PN ---
Subjective - Date & Time of Evaluation Date of Evaluation: 08/30/18 Time of Evaluation: 14:04 - Subjective Subjective: Nephrology Consultation Note: Assessment: Stable SIRS r/o PD peritonitis Diabetic chronic Kidney Disease (E11.22) Hypertensive Chronic Kidney Disease (I12.0) End stage renal disease (N18.6) dependence on PD Anemia (D64.9), Hyperphosphatemia (E83.39), Secondary Hyperparathyroidism (E21.1), morbid obesity Plan: sent PD fluid cell count and culture last night. results awaited Pt will continue PD as per home regimen. had brought supply from home. advised to avoid 4.25% solution. she will use 2.5% dex Continue with Nephrovite 1 tab/day. PRBC as needed for anemia. not on KRISTIE as last Hb >10 Continue with phos binders, last phos level: check BP control with meds as ordered. Patient not on RAAS jannette, will consider to a dd if BP high. will d/c norvasc and change lasix to IV considering edema, continue same as ordered Glycemic control, Dialysis consistent diet Further work up/management as per primary team Dose meds/antibiotics (if needed) for ESRD status. Avoid fleets enema/magnesium based laxatives. Thanks for allowing me to participate in care of your patient. Will follow patient with you. Please call if any Qs. had d/w team and family bedside Dr Antonio Guerra Office: [phone] Chief Complaint;flank pain HPI: Pt is a 53 F with hx of ESRD on APD with Dr Castillo, chronic anemia, hyperphosphatemia, secondary hyperparathyroidism, Diabetes Mellitus, hypertension morbid obesity presented with complaints of flank pain and admitted for further work up. Renal consult requested for ESRD management. pt says she was on HD for few months then switched to HD jan 2018. do PD at night with cycler. average UF as per pt varies but may be 1000 mLc/o leg swelling as well ROS: feels better. PD uneventful overnight. net UF 1600 mL. she used 4.25% dextrose solution also but high sugars today Cardiovascular: No chest pain. Pulmonary: no shortness of breath on exertion. has cough Gastrointestinal: no abdominal pain No nausea. No vomiting. Genitourinary: No pain while urinating. Denies blood in urine. All other negative except as mentioned in HPI Physical Examination: General Appearance: Comfortable, in no acute respiratory distress, co-operative .morbidly obese Vitals reviewed and noted as below Head; Atraumatic, normocephalic ENT: no ulcers no thrush. Tongue is midline. Oropharynx: no rash or ulcers. EYES: Pupils are equal, round and reactive to light accommodation. Eye muscles and extraocular movement intact. Sclera is anicteric. Neck; supple no lymphadenopathy, no thyromegaly or bruit Lungs: Normal respiratory rate/effort. Breath sounds bilateral equal and clear Heart: Normal rate. s1s2 normal. No rub or gallop. Extremities: 2+ edema. No varicose veins Neurological: Patient is alert, awake and oriented to person, place and time. No focal deficit. Strength bilateral appropriate and equal Skin: Warm and dry. Normal turgor. No rash. Palpitation: Normal elasticity for age Abdomen: Abdomen is soft. Bowel sounds +. There is no abdominal tenderness, no guarding/rigidity or organomegaly. has PD catheter Psych: normal insight and normal affect/mood MSK: no joint tenderness or swelling. Digits and nails normal, no deformity : kidney or bladder not palpable Access: PD catheter Labs/imaging reviewed. Past medical history, past surgical history, family history, social history, allergy reviewed and noted as below Family Hx: no hx of CKD. Non contributory Objective - Vital Signs/Intake and Output Vital Signs (last 24 hours): Temp Pulse Resp BP Pulse Ox 97.9 F 88 20 142/69 92 L 08/30/18 06:00 08/30/18 10:08 08/30/18 06:00 08/30/18 10:09 08/30/18 06:00 Intake and Output: 08/30/18 08/30/18 06:59 18:59 Intake Total 780 Balance 780 - Medications Medications: Current Medications Acetaminophen (Tylenol 325mg Tab) 650 mg PO Q4H PRN PRN Reason: Fever >100.5 F Albuterol/Ipratropium (Duoneb 3 Mg/0.5 Mg (3 Ml) Ud) 3 ml IH Q2H PRN PRN Reason: Shortness of Breath Albuterol/Ipratropium (Duoneb 3 Mg/0.5 Mg (3 Ml) Ud) 3 ml IH [id number] RIVERA Last Admin: 08/30/18 11:41 Dose: 3 ml Aspirin (Aspirin Chewable) 81 mg PO DAILY [facility] Last Admin: 08/30/18 10:05 Dose: 81 mg Atorvastatin Calcium (Lipitor) 40 mg PO DIN [facility] Last Admin: 08/29/18 18:48 Dose: 40 mg Carvedilol (Coreg) 25 mg PO BID [facility] Last Admin: 08/30/18 10:08 Dose: 25 mg Dextrose (Dextrose 50% Inj) 0 ml IV STAT PRN; Protocol PRN Reason: Hypoglycemia Protocol Furosemide (Lasix) 40 mg IVP DAILY [facility] Last Admin: 08/30/18 10:09 Dose: 40 mg Gabapentin (Neurontin) 200 mg PO HS [facility]; Protocol Last Admin: 08/29/18 22:20 Dose: 200 mg Dextrose (Dextrose 5% In Water 1000 Ml) 1,000 mls @ 0 mls/hr IV .Q0M PRN; Protocol PRN Reason: Hypoglycemia Protocol Meropenem 250 mg/ Sodium (Chloride) 100 mls @ 100 mls/hr IVPB Q12H [facility]; Protocol Stop: 09/05/18 14:01 Last Admin: 08/30/18 01:51 Dose: 100 mls/hr Insulin Detemir (Levemir) 40 unit SC BID [facility] Last Admin: 08/30/18 10:11 Dose: 40 u Insulin Human Regular (Humulin R Med) 0 units SC ACHS [facility]; Protocol Last Admin: 08/30/18 12:16 Dose: 7 units Insulin Lispro Protam/Lispro Human (Humalog Mix 75/25) 20 units SC AC [facility] Last Admin: 08/30/18 12:14 Dose: 20 u Lactulose (Enulose) 20 gm PO HS PRN PRN Reason: Constipation Polyethylene Glycol (Miralax) 17 gm PO DAILY [facility] Stop: 09/02/18 10:01 Last Admin: 08/29/18 18:48 Dose: 17 gm Sevelamer HCl (Renagel) 800 mg PO TID [facility] Last Admin: 08/30/18 10:05 Dose: 800 mg - Labs Labs: 08/30/18 06:40 08/30/18 06:40 PT 10.3 SECONDS (9.4-12.5) 08/29/18 01:45 INR 0.93 08/29/18 01:45 APTT 30.9 Seconds (26.9-38.3) 08/29/18 01:45
[2018-08-30 15:05] LABS: BODY FLUID TYPE PERITONEAL
[2018-08-30] MEDS: POLYETHYLENE GLYCOL 3350 17 GM/Dose PACKET PO SCH (16:06)
[2018-08-30 16:20] LABS: BF GROSS APPEARANCE CLEAR (CLEAR)
[2018-08-30 16:22] LABS: BODY FLUID TOTAL COUNT 0 (0-0)
--- NOTE | 2018-08-31 01:45 | CON ---
DATE: 08/30/2018 The patient was seen earlier today in 560, bed 2. CHIEF COMPLAINT: Back pain, right-sided flank pain since several days. HISTORY OF PRESENT ILLNESS: This is a 53-year-old female with diabetes mellitus, diabetic neuropathy, end-stage renal disease on peritoneal dialysis, hypertension, and was treated for pneumonia, right lower lobe with Levaquin 10 days. The patient also with possible cirrhosis and CT, which showed improvement having complained of flank pain and now she states that she is much improved. REVIEW OF SYSTEMS: A 12-point review of systems was performed. PAST MEDICAL HISTORY: Significant for diabetes, diabetic neuropathy, end-stage renal disease on peritoneal dialysis, hypertension, recent diagnosis of pneumonia, and multiple sclerosis. PAST SURGICAL HISTORY: Significant for left ankle surgery, a placement in 08/15/2017, and a . ALLERGIES: NO KNOWN ALLERGIES. MEDICATIONS AT HOME: Noted. PHYSICAL EXAMINATION GENERAL: The patient in bed doing much better, she states overall improved. VITAL SIGNS: Temperature of 98, blood pressure is 120/60, respiratory rate of 18, heart rate of 88 it was 98. HEENT: Unremarkable. NECK: Supple. LUNGS: Decreased breath sounds. HEART: Normal S1, S2. ABDOMEN: Soft and nontender. There was some right-sided flank pain. LABORATORY DATA: Reveals white count 15,900, hemoglobin 10, platelets of 427. BUN of 58, creatinine of 6, procalcitonin 0.15. Urinalysis is not done. HIV is negative. Urine legionella is negative. The patient's blood cultures are negative. The patient had CAT scan of the abdomen and pelvis which was essentially unremarkable. Chest x-ray with atelectasis. ASSESSMENT AND PLAN: A 53-year-old female with diabetic and end-stage renal disease on peritoneal dialysis now with systemic inflammatory response syndrome, right flank tenderness probably consistent with a right pyelonephritis versus spontaneous bacterial peritonitis. We will treat the patient with meropenem. Dr. Eh Chou's note is reviewed. Unfortunately urinalysis and no urine were sent. The patient continues to state to do well, will be able to switch to p.o. antibiotics. We will follow with you. Felipe Oates MD [facility] # [id number]
--- NOTE | 2018-08-31 08:04 | PN ---
DATE: 08/31/2018 PULMONARY NOTE SUBJECTIVE: The patient appears very comfortable this morning. She is not short of breath at rest. OBJECTIVE: VITAL SIGNS: (Last noted in the computer): Temperature is 98.2, pulse 80, respirations 19, blood pressure 120/53. Oxygen saturation on room air - 95%. HEENT: Normocephalic, atraumatic. No JVD. CARDIOVASCULAR: Positive S1, S2. No S3 gallop. LUNGS: Decreased breath sounds at the bases. Very minimal/less rhonchi. No wheezing. EXTREMITIES: Mild edema, no cyanosis, no clubbing. Calves are nontender to palpation. GASTROINTESTINAL: Abdomen is soft, nontender and nondistended. Bowel sounds are positive. SKIN: No acute rash. NEUROLOGIC: Exam limited at the present time. IMPRESSION: 1. Cavitation verses bullae - right lung base. 2. Status post recent right upper lobe, right lower lobe pneumonia. 3. End-stage renal disease. 4. Leukocytosis - resolving. 5. Anemia. PLAN: The patient appears very comfortable this morning. She is not short of breath at rest. She does state to feeling much better overall. She has less back pain. I did discuss the case with the night nurse at length. The night nurse stated that the patient had a good night. On physical exam, there is less bronchospasm noted. In addition, the oxygen saturation on room air is now 95%. I will continue the current nebulizer treatments for now.. I did discuss the case with Dr. Eh Chou at length yesterday. Apparently, Dr. Chou did speak with Dr. Juarez (Interventional Radiology). Given the significant clinical and radiologic improvement over the past 2 weeks, Dr. Juarez wants to continue with the antibiotic coverage(as per Infectious Disease), and repeat the CAT scan of the chest in 6-8 weeks. I also discussed the case with Dr. Oatse, (Infectious Disease) at length this morning. Dr. Oates will continue with antibiotic coverage, and agrees with the plan. There are no temperatures noted. The patient did have a CBC yesterday - which showed a resolving leukocytosis. Repeat a.m. labs are pending for this morning. Input by Renal is also noted. Clinical status of the patient is significantly improved - compared to a few weeks ago. In addition, as stated in yesterday's assessment, the chest x-ray is also very significantly improved. Certainly, given the CT scan findings, the patient will need to be followed closely. She fully agrees . I will discuss the case with Dr. Chou again this morning. Isac Erazo MD [facility]
[2018-08-31 08:06] LABS: BASO # 0.06 K/mm3 (0.0-2.0); BASO % 0.6 % (0.0-3.0); EOS # 1.3 (0.0-0.7); EOS % 12.6 % (1.5-5.0); HEMOGLOBIN 9.4 g/dL (12.0-16.0); LYMPH # 2.6 (1.2-3.4); LYMPH % 24.9 % (22.0-35.0); MEAN CELL VOLUME 95.8 fl (80.0-105.0); MEAN CORPUSCULAR HEMOGLOBIN 30.6 pg (25.0-35.0); MEAN PLATELET VOLUME 8.6 fl (7.0-11.0); MONO # 0.5 (0.1-0.6); MONO % 4.8 % (1.0-6.0); RBC 3.07 10^6/uL (3.5-6.1); RED CELL DISTRIBUTION WIDTH 15.5 % (11.5-14.5); WHITE BLOOD COUNT 10.3 10^3/uL (4.5-11.0)
[2018-08-31 08:24] LABS: ALB/GLOB RATIO 1.2 (1.1-1.8); ALBUMIN 3.8 g/dL (3.0-4.8); CALCIUM 8.4 mg/dL (8.4-10.5)
[2018-08-31] MEDS: Albuterol-Ipratrop 3 mg / 0.5 (3 ml) UD IH SCH ×4 (08:36→20:13)
[2018-08-31] MEDS: Insulin Lispro (humaLOG) MIX 75/25(10 ml) SC SCH ×3 (09:48→17:31)
[2018-08-31] MEDS: Insulin Reg-MEDIUM-Coverage SC SCH ×4 (09:48→21:52)
[2018-08-31] MEDS: Insulin Detemir 100 units/ml Vial (Levemir) SC SCH ×2 (09:49→17:36)
[2018-08-31] MEDS: POLYETHYLENE GLYCOL 3350 17 GM/Dose PACKET PO SCH (09:49)
[2018-08-31] MEDS: Multivitamin Vitamin B Complex (Nephro-Vite) Tab PO SCH (09:49)
[2018-08-31] MEDS ORDERED: Darbepoetin Alfa 60 mcg/ml Inj SC ONE (11:10)
--- NOTE | 2018-08-31 12:55 | PN ---
DATE: 08/31/2018 LOCATION: Room 560, bed 2. SUBJECTIVE: The patient is a 53-year-old obese female. She run dialysis due to renal failure with a history of diabetes, congestive heart failure, diabetic nephropathy. She is laying in bed comfortably. She has no acute complaints at this time and there have been no acute events overnight. PHYSICAL EXAMINATION: VITAL SIGNS: Temperature of 98.1, pulse rate of 83, blood pressure 133/79, respiratory rate of 18, O2 saturation of 95% on room air. HEENT: PERRLA, EOMI. There is no icterus present. NECK: Supple with a full range of motion. LUNGS: Clear to auscultation and percussion bilaterally. HEART: Regular rate and rhythm. No murmur, rubs or gallops. ABDOMEN: Soft, nontender, positive bowel sounds. EXTREMITIES: Show no edema. NEUROLOGIC: The patient is intact. LABORATORY DATA: CBC shows a WBC of 10.3, hemoglobin and hematocrit of 9.4 and 29.4. Currently, this morning's fasting glucose is down to 255. Microbiology showed a urine culture final no growth. Blood cultures no growth x2. 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 We will continue current regimen. Ambulate the patient. Anton Chou MD
--- NOTE | 2018-08-31 13:20 | CP.PCM.PN ---
Subjective - Date & Time of Evaluation Date of Evaluation: 08/31/18 Time of Evaluation: 13:19 - Subjective Subjective: Nephrology Consultation Note: Assessment: Stable SIRS Diabetic chronic Kidney Disease (E11.22) Hypertensive Chronic Kidney Disease (I12.0) End stage renal disease (N18.6) dependence on PD Anemia (D64.9), Hyperphosphatemia (E83.39), Secondary Hyperparathyroidism (E21.1), morbid obesity Plan: sent PD fluid cell count and culture and results against peritonitis. Pt will continue PD as per home regimen. had brought supply from home. advised to avoid 4.25% solution. she will use 2.5% dex Continue with Nephrovite 1 tab/day. PRBC as needed for anemia. added KRISTIE as last Hb <10 Increased phos binders, last phos level: 6.2 BP control with meds as ordered. Patient not on RAAS jannette, will consider to add if BP high. will d/c norvasc and change lasix to IV considering edema, continue same as ordered Glycemic control, Dialysis consistent diet Further work up/management as per primary team Dose meds/antibiotics (if needed) for ESRD status. Avoid fleets enema/magnesium based laxatives. pulmonary and ID following Thanks for allowing me to participate in care of your patient. Will follow patient with you. Please call if any Qs. had d/w team and family bedside Dr Antonio Guerra Office: [phone] Chief Complaint;flank pain HPI: Pt is a 53 F with hx of ESRD on APD with Dr Castillo, chronic anemia, hyperphosphatemia, secondary hyperparathyroidism, Diabetes Mellitus, hypertension morbid obesity presented with complaints of flank pain and admitted for further work up. Renal consult requested for ESRD management. pt says she was on HD for few months then switched to HD jan 2018. do PD at night with cycler. average UF as per pt varies but may be 1000 mL c/o leg swelling as well ROS: feels better. PD uneventful overnight. net UF 1200 mL. she used 2.5% dextrose solution Cardiovascular: No chest pain. Pulmonary: no shortness of breath on exertion. has cough Gastrointestinal: no abdominal pain No nausea. No vomiting. Genitourinary: No pain while urinating. Denies blood in urine. All other negative except as mentioned in HPI Physical Examination: General Appearance: Comfortable, in no acute respiratory distress, co-operative .morbidly obese Vitals reviewed and noted as below Head; Atraumatic, normocephalic ENT: no ulcers no thrush. Tongue is midline. Oropharynx: no rash or ulcers. EYES: Pupils are equal, round and reactive to light accommodation. Eye muscles and extraocular movement intact. Sclera is anicteric. Neck; supple no lymphadenopathy, no thyromegaly or bruit Lungs: Normal respiratory rate/effort. Breath sounds bilateral equal and clear Heart: Normal rate. s1s2 normal. No rub or gallop. Extremities: 1+ edema. No varicose veins Neurological: Patient is alert, awake and oriented to person, place and time. No focal deficit. Strength bilateral appropriate and equal Skin: Warm and dry. Normal turgor. No rash. Palpitation: Normal elasticity for age Abdomen: Abdomen is soft. Bowel sounds +. There is no abdominal tenderness, no guarding/rigidity or organomegaly. has PD catheter Psych: normal insight and normal affect/mood MSK: no joint tenderness or swelling. Digits and nails normal, no deformity : kidney or bladder not palpable Access: PD catheter Labs/imaging reviewed. Past medical history, past surgical history, family history, social history, allergy reviewed and noted as below Family Hx: no hx of CKD. Non contributory Objective - Vital Signs/Intake and Output Vital Signs (last 24 hours): Temp Pulse Resp BP Pulse Ox 98.1 F 83 18 135/79 95 08/31/18 07:00 08/31/18 07:00 08/31/18 07:00 08/31/18 09:48 08/31/18 07:00 Intake and Output: 08/31/18 08/31/18 06:59 18:59 Intake Total 180 Balance 180 - Medications Medications: Current Medications Acetaminophen (Tylenol 325mg Tab) 650 mg PO Q4H PRN PRN Reason: Fever >100.5 F Last Admin: 08/31/18 05:58 Dose: 650 mg Albuterol/Ipratropium (Duoneb 3 Mg/0.5 Mg (3 Ml) Ud) 3 ml IH Q2H PRN PRN Reason: Shortness of Breath Albuterol/Ipratropium (Duoneb 3 Mg/0.5 Mg (3 Ml) Ud) 3 ml IH [id number] RIVERA Last Admin: 08/31/18 11:41 Dose: Not Given Aspirin (Aspirin Chewable) 81 mg PO DAILY [facility] Last Admin: 08/31/18 09:47 Dose: 81 mg Atorvastatin Calcium (Lipitor) 40 mg PO DIN [facility] Last Admin: 08/30/18 16:11 Dose: 40 mg Carvedilol (Coreg) 25 mg PO BID [facility] Last Admin: 08/31/18 09:47 Dose: 25 mg Dextrose (Dextrose 50% Inj) 0 ml IV STAT PRN; Protocol PRN Reason: Hypoglycemia Protocol Furosemide (Lasix) 40 mg IVP DAILY [facility] Last Admin: 08/31/18 09:48 Dose: 40 mg Gabapentin (Neurontin) 200 mg PO HS [facility]; Protocol Last Admin: 08/30/18 21:40 Dose: 200 mg Dextrose (Dextrose 5% In Water 1000 Ml) 1,000 mls @ 0 mls/hr IV .Q0M PRN; Protocol PRN Reason: Hypoglycemia Protocol Meropenem 250 mg/ Sodium (Chloride) 100 mls @ 100 mls/hr IVPB Q12H [facility]; Protocol Stop: 09/05/18 14:01 Last Admin: 08/31/18 03:00 Dose: 100 mls/hr Insulin Detemir (Levemir) 40 unit SC BID [facility] Last Admin: 08/31/18 09:49 Dose: 40 u Insulin Human Regular (Humulin R Med) 0 units SC ACHS [facility]; Protocol Last Admin: 08/31/18 12:09 Dose: 7 units Insulin Lispro Protam/Lispro Human (Humalog Mix 75/25) 20 units SC AC [facility] Last Admin: 08/31/18 12:08 Dose: 20 u Lactulose (Enulose) 20 gm PO HS PRN PRN Reason: Constipation Polyethylene Glycol (Miralax) 17 gm PO DAILY [facility] Stop: 09/02/18 10:01 Last Admin: 08/31/18 09:49 Dose: 17 gm Sevelamer HCl (Renagel) 1,600 mg PO TID [facility] Vitamin B Complex/Vit C/Folic Acid (Nephro-Lisa) 1 tab PO 0800 [facility] Last Admin: 08/31/18 09:49 Dose: 1 tab - Labs Labs: 08/31/18 07:45 08/31/18 07:45 PT 10.3 SECONDS (9.4-12.5) 08/29/18 01:45 INR 0.93 08/29/18 01:45 APTT 30.9 Seconds (26.9-38.3) 08/29/18 01:45
[2018-08-31] MEDS ORDERED: Insulin Lispro (humaLOG) MIX 75/25(10 ml) SC SCH (18:56)
--- NOTE | 2018-09-01 00:57 | PN ---
DATE: 08/31/2018 SUBJECTIVE: The patient is seen in bed, in no acute distress. OBJECTIVE: VITAL SIGNS: Temperature is 98, blood pressure is 130/90, and respirations 16. HEENT: Unremarkable. NECK: Supple. LUNGS: Have decreased breath sounds. HEART: Normal S1 and S2. ABDOMEN: Soft. LABORATORY EXAMINATION: Reveals a white count of 10,000, hemoglobin of 9, BUN of 62, and creatinine of 5.7. Urine Legionella antigen is negative. HIV is negative. Microbiology reveals naris is negative. Peritoneal cultures are negative. Urine cultures negative. Blood cultures negative. REVIEW OF ORDERS: Reveals the patient to be on meropenem. ASSESSMENT AND PLAN: This is a 53-year-old female diabetic, end-stage renal disease, on peritoneal dialysis with systemic inflammatory response syndrome, right flank tenderness, possible right pyelonephritis. The patient also with a cavitary lesion, questionable abscess formation, lung abscess after pneumonia. We will continue the meropenem and the patient appears to be improving and negative MRSA is detected. Peritoneal cultures negative. We will be able to switch to p.o. Follow up imaging as outpatient to resolution with Dr. Erazo. Felipe Oates MD
[2018-09-01] MEDS: Albuterol-Ipratrop 3 mg / 0.5 (3 ml) UD IH SCH ×4 (01:21→13:05)
[2018-09-01] MEDS ORDERED: Insulin Regular 1 UNITS/0.01 ML ML SC STA (01:21)
[2018-09-01 07:46] VITALS: BP 126/68; PULSE 76; RESP 20; TEMP 97.9; O2SAT 96
[2018-09-01] MEDS: Multivitamin Vitamin B Complex (Nephro-Vite) Tab PO SCH (09:11)
[2018-09-01] MEDS: Insulin Reg-MEDIUM-Coverage SC SCH (09:12)
[2018-09-01] MEDS: Insulin Detemir 100 units/ml Vial (Levemir) SC SCH (09:12)
--- NOTE | 2018-09-01 10:12 | PN ---
SUBJECTIVE: The patient was seen and examined at bedside on the general medical saleem. No acute events overnight. She remains afebrile and hemodynamically stable. This morning she feels well, reports continued improvement in her presenting symptoms, offers no complaints and would like to go home. OBJECTIVE: VITAL SIGNS: Temperature 97.9, pulse 76, blood pressure 126/68, respiratory rate 20, oxygen saturation 96% on room air. GENERAL: Morbidly obese woman, sitting up in her chair, in no apparent distress. HEENT: PERRL, EOMI. No scleral icterus. Mild conjunctival pallor is noted. NECK: No JVD. No bruits. LUNGS: Decreased breath sounds at the bases. CARDIOVASCULAR: Regular rate and rhythm. Normal S1 and S2. No murmurs. ABDOMEN: Obese, normoactive bowel sounds, soft, nontender, nondistended. EXTREMITIES: Trace pedal edema bilaterally. NEUROLOGIC: Awake, alert and oriented x 3. No focal motor deficits. LABORATORY DATA: Morning labs are pending. Blood cultures with no growth to date. Urine culture with no growth to date. Peritoneal fluid culture with no growth to date. ASSESSMENT: The patient is a 53-year-old woman with multiple medical comorbidities who was recently treated with a 10 day course of antibiotics for community-acquired pneumonia who presented with a 3 day history of right-sided mid-back and flank pain and was admitted for management of SIRS syndrome. PLAN: 1. SIRS, resolving. Input from Dr. Oates noted and the patient remains afebrile, hemodynamically stable and with negative cultures. After a discussion with Dr. Oates this morning, recommendations have been made for an oral antibiotic course consisting of either Avelox 400 mg p.o. daily or Vantin and Flagyl dual therapy to complete an additional 10 day course. 2. Community-acquired pneumonia to the right lower lobe, resolved, complicated by cavitary lesion. Input from Dr. Erazo noted and appreciated and the patient will be followed on outpatient basis for repeat imaging studies to assess for resolution of the cavitary lesion. As above, we will continue a prolonged course of antibiotics as per Dr. Oates. 3. ESRD on peritoneal dialysis. Input from Dr. Guerra. Continue with care as per Dr. Guerra. 4. Insulin-dependent diabetes mellitus with diabetic neuropathy. Continue with current insulin regimen. Continue with Gabapentin 200 mg p.o. at bedtime for neuropathy. 5. Hypertension. Blood pressure controlled. Continue Carvedilol 25 mg p.o. b.i.d. 6. Hyperlipidemia. Continue Lipitor 40 mg p.o. daily. 7. Multiple sclerosis. Continue Gabapentin 200 mg p.o. at bedtime. 8. Anemia of chronic disease. 9. Prophylaxis. GI prophylaxis not indicated as the patient is eating. DVT prophylaxis not indicated as the patient is ambulatory. CODE STATUS: Full code. Eh Chou MD [facility]
--- NOTE | 2018-09-01 21:27 | PN ---
DATE: 09/01/2018 SUBJECTIVE: The patient is seen earlier today in 560. No fevers, no chills. PHYSICAL EXAMINATION: VITAL SIGNS: Temperature is 98, blood pressure is 126/60, respiratory rate of 18. HEENT: Unremarkable. NECK: Supple. LUNGS: Have decreased breath sounds. HEART: Normal S1 and S2. ABDOMEN: Soft. LABORATORY EXAMINATION: Reveals a white count of 10,000 and hemoglobin of 9. Chemistries are revealed. Creatinine is 5.7. Microbiology is reviewed. ASSESSMENT AND PLAN: This is a 53-year-old female with end-stage renal disease on peritoneal dialysis and systemic inflammatory response syndrome with minimal right flank tenderness, possible pyelonephritis. Cavitary lesion was seen on imaging and the patient had a pneumonia, currently on meropenem. Discussed with Dr. Eh Chou who can switch the p.o. Augmentin. If unable to get Augmentin, may use Avelox. We will follow with you. Follow up imaging resolution if it does not resolve, we will need further invasive procedure to rule out underling pathology including Alvin's vasculitis. Felipe Oates MD
--- NOTE | 2018-09-02 05:52 | CP.PCM.PN ---
Subjective - Date & Time of Evaluation Date of Evaluation: 09/02/18 Time of Evaluation: 05:52 - Subjective Subjective: TBD Rx, insulin Objective - Vital Signs/Intake and Output Vital Signs (last 24 hours): Temp Pulse Resp BP Pulse Ox 97.9 F 76 20 126/68 96 09/01/18 06:00 09/01/18 06:00 09/01/18 06:00 09/01/18 09:15 09/01/18 06:00 - Labs Labs: 08/31/18 07:45 08/31/18 07:45 PT 10.3 SECONDS (9.4-12.5) 08/29/18 01:45 INR 0.93 08/29/18 01:45 APTT 30.9 Seconds (26.9-38.3) 08/29/18 01:45
== END 2018-09-01 14:56 | disposition home or self-care (01) | DRG 699 ==
LOC: ED 00:51 → ERH 05:09 → 5RSO 06:38 → OBSVTOIN 09:02 → 5RNO 10:00
PROVIDERS: ADMIT Student in an Organized Health Care Education/Training Program; ATTEND Student in an Organized Health Care Education/Training Program
PROC: 3E1M39Z Irrigation of Peritoneal Cavity using Dialysate, Percutaneous Approach (ICD-10-PCS; 2018-08-29)
PROC: 3E1M39Z Irrigation of Peritoneal Cavity using Dialysate, Percutaneous Approach (ICD-10-PCS; 2018-08-30)
PROC: 3E1M39Z Irrigation of Peritoneal Cavity using Dialysate, Percutaneous Approach (ICD-10-PCS; 2018-08-31)
PROC: 3E1M39Z Irrigation of Peritoneal Cavity using Dialysate, Percutaneous Approach (ICD-10-PCS; principal; 2018-09-01)
DX: E11.21 Type 2 diabetes mellitus with diabetic nephropathy (principal); J98.11 Atelectasis; R65.10 Systemic inflammatory response syndrome (SIRS) of non-infectious origin without acute organ dysfunction; I13.2 Hypertensive heart and chronic kidney disease with heart failure and with stage 5 chronic kidney disease, or end stage renal disease; N12 Tubulo-interstitial nephritis, not specified as acute or chronic; N18.6 End stage renal disease; N25.81 Secondary hyperparathyroidism of renal origin; M54.9 Dorsalgia, unspecified; Z99.2 Dependence on renal dialysis; E11.40 Type 2 diabetes mellitus with diabetic neuropathy, unspecified; E66.01 Morbid (severe) obesity due to excess calories; E11.22 Type 2 diabetes mellitus with diabetic chronic kidney disease; Z87.01 Personal history of pneumonia (recurrent); G35 Multiple sclerosis; E78.5 Hyperlipidemia, unspecified; D63.1 Anemia in chronic kidney disease; E83.39 Other disorders of phosphorus metabolism; Z87.891 Personal history of nicotine dependence; Z68.39 Body mass index [BMI] 39.0-39.9, adult; E78.00 Pure hypercholesterolemia, unspecified; I50.9 Heart failure, unspecified; Z79.4 Long term (current) use of insulin; Z79.82 Long term (current) use of aspirin; Z82.0 Family history of epilepsy and other diseases of the nervous system; Z82.49 Family history of ischemic heart disease and other diseases of the circulatory system; Z83.3 Family history of diabetes mellitus; Z98.891 History of uterine scar from previous surgery; L84 Corns and callosities; K59.00 Constipation, unspecified; N92.6 Irregular menstruation, unspecified

== ENCOUNTER 2018-10-03 16:09 | Outpatient (CLI) | payer BC, MEDICARE | END 2018-10-03 16:10 | disposition home or self-care (01) | LOC: RAD 16:09 | DX: J18.8 Other pneumonia, unspecified organism (principal) ==